=== PATIENT | male | born 1985 | race Caucasian/White ===

== ENCOUNTER → 2025-06-23 | Outpatient (CLI) | payer SELFPAY, OTHER | END | disposition home or self-care (01) | PROVIDERS: PCP Nurse Practitioner Family; Referring Provider Nurse Practitioner Family; Visit Provider Nurse Practitioner Family | DX: Z82.49 Family history of ischemic heart disease and other diseases of the circulatory system (principal) | CPT/HCPCS: 75571; 76380 ==

== ENCOUNTER → 2025-07-03 | Outpatient (CLI) | payer OTHER, SELFPAY ==
--- OUTSIDE RECORDS SUMMARY | 2025-07-03 06:56 | XMS RPT_ITS | CCD ---
Author Organization [facility] Care Team Providers Care Dinkey Press Operator Name Role Phone Pratik OIL LEASE OPERATOR, Marlene Weaver Referring Unavailabl e Pratik OIL LEASE OPERATOR, Marlenejosé miguel Weaver Primary Care Javon Gracia Attending Arlette Christie OIL LEASE OPERATOR, Marlene Weaver Consulting Unavailabl e Pratik OIL LEASE OPERATOR, Marlene Weaver Attending Unavailabl e Pratik OIL LEASE OPERATOR, Marlenejosé miguel Weaver Referring Unavailabl e Pratik OIL LEASE OPERATOR, Marlenejosé miguel Weaver Primary Care Unavailmaggie e Pratik OIL LEASE OPERATOR, Marlene Weaver Attending Chayoabl e Pratik OIL LEASE OPERATOR, Marlenejosé miguel Weaver Referring Unavailabl e Pratik OIL LEASE OPERATOR, Marlene Meg Primary Care Unavailabl e Problems Problem Classification Problem Date Documented Date Episodic/Chronic Heart valve disorders (1 source) Unspecified abnormalities of heart beat; Translations: [Unspecified abnormalities of heart beat] Onset: 06-27-2025 Episodic Residual codes; unclassified (1 source) Family history of ischemic heart disease and other diseases of the circulatory system; Translations: [Family history of ischemic heart disease and other diseases of the circulatory system] Onset: 06-27-2025 Episodic Results Test Name Value Interpretation Reference Range Facil ity Coronary Angiography CTon Coronary Angiography CT [facility] Imaging Services [address] [place] [address] 06/23/25 1841 MR#: [id number] Acct: [id number] Name: SARA SEGURA Rep #: [id number] : 1985 39 From: Javon Lamar MD PCP: Marlene Christie NP-C Status:REG CLI Y Location: CT Calcium Scoring Date of Study:: 06/23/25 Indications Indications: Scrteening Coronary Calcium Scoring: High-resolution Computed Tomographic imaging of the chest was performed on [06/23/25 ], with particular attention paid to the coronary arteries. Images from the examination were analyzed for the presence and extent of coronary artery calcification , using coronary calcium quantification software. The patient tolerated the procedure well and there were no complications. The results of the coronary calcification analysis are provided below. Findings Coronary Artery Left Main (LM): 0 Left Anterior Descending (LAD): 15.7 Left Circumflex (LCX): 0 Right Coronary Artery (RCA): 0 Total Agatston Score: 15.7 Percentile Ranking: Greater than 90th percentile Calcium Scoring Interpretation: Different methods to categorize the overall amount of coronary plaque. Overall amount CAC SIS Visual of coronary plaque P1 Mild -100 <2 1-2 vessels with mild amount of plaque P2 Moderate 101-300 3-4 1-2 vessels with moderate amount, 3 vessels with mild amount of plaque P3 Severe 301-999 5-7 3 vessels with moderate amount, 1 vessel with severe amount of plaque P4 Extensive >1000 >8 2-3 vessels with severe amount of plaque Calcium Score: Mild: 1-2 vessels w/mild amount of plaque Conclusion: Premature focal calcification single-vessel noted 06/23/25 1842 Date Javon Crews Signature (if applicable): Date CC: OIL LEASE OPERATOR-C Marlene Christie; Dr. Javon Lamar MD Signed [facility] Limited Chest CT Cardiac Onl yon 06-23-[address] Cardiac Only [facility] Imaging Services [address] [place] [address] Cardiac Only MR#: [id number] Acct: [id number] Name: SARA SEGURA Rep #: [id number] : 1985 M 39 From: Emil chowdary MD PCP: Marlene Christie, OIL LEASE OPERATOR-C Status: REG CLI Study: Limited Chest CT Cardiac Only Date of Exam: Exam# [id number] Ordering Dr: Marlene Christie NP OIL LEASE OPERATOR-C PROCEDURE: LIMITED CHEST CT CARDIAC ONLY 06/23/2025 REASON FOR EXAM: FAMILY HX CAD TECHNIQUE: Procedure Code: [id number] Modality: CT Procedure: LIMITED CHEST CT CARDIAC ONLY CONTRAST: None One or more dose reduction techniques were used (e.g., Automated exposure control, adjustment of the mA and/or kV according to patient size, use of iterative reconstruction technique). RADIATION DOSE SUMMARY: CTDlvol: 12.19 mGy DLP: 243.79 mGycm COMPARISON: None FINDINGS: Small benign-appearing mediastinal lymph nodes. Mild coronary artery calcification of the LAD. The lungs are clear. CT/Limited Chest CT Cardiac Only IMPRESSION: Mild coronary artery calcification. Reading Location: [place] [address] CC: OIL LEASE OPERATOR-C Marlene Christie System Development Manager: Signed [facility] Encounters Encounter Date Encounter Type Care Provider Facility Start: 07-03-2025 ambulatory Marlene Christie NP Fa cility:[facility] Start: 06-23-2025 ambulatory Marlene Christie NP Fa cility:[facility] [place] Start: 06-23-2025 ambulatory Marlene Christie OIL LEASE OPERATOR Fa cility:[facility] Payers Date Payer Category Payer Self-pay 2025 Unknown [id number] 2025 Unknown [id number] Unknown [id number] Unknown [id number] Unknown [id number] Summary Purpose Family History No Family History Records Found Advance Directives No Advanced Directives Records Found Additional Source Comments (unrecognized sect ion and content) No Status Records Found INFORMATION SOURCE (unrecogn ized section and content) DATE CREATED AUTHOR 06/29/2025 [facility] FOR RECORDS PERTAINING TO PATIENTS WHO ARE OR HAVE BEEN ENROLLED IN A CHEMICAL DEPENDENCY/SUBSTANCEABUSE PROGRAM, SOME INFORMATION MAY BE OMITTED. This clinical summary was aggregated from multiple sources. Caution should be exercised in using it in the provision of clinical care. This summary normalizes information from multiple sources, and as a consequence, information in this document may materially change the coding, format and clinical context of patient data. In addition, data may be omitted in some cases. CLINICAL DECISIONS SHOULD BE BASED ON THE PRIMARY CLINICAL RECORDS. [facility] [employer] [facility]. provides no warranty or guarantee of the accuracy or completeness of information in this document.
== END | disposition home or self-care (01) ==
LOC: PSN 06:54
PROVIDERS: PCP Nurse Practitioner Family; Referring Provider Nurse Practitioner Family; Visit Provider Nurse Practitioner Family
DX: R00.9 Unspecified abnormalities of heart beat (principal)
CPT/HCPCS: 93225; 93226